=== PATIENT | female | born 1965 | race Caucasian/White ===

== ENCOUNTER → 2016-05-07 | Outpatient (CLI) | payer OTHER ==
[2015-08-19 12:08] VITALS: BP 142/91
[~2016-05-07] MED LIST: ACYC400T PO; ANAS1TAB3 PO; CHLO1CAP PO; CLON1TAB3 PO; ERGO400T2 PO; ERGO500012 PO; HYDR-2666 PO; HYDR-2678 PO; LEVO100T5 PO; METO-269 PO; METO25TA9 PO; OMEP40CA5 PO; ONDA4TAB7 PO; OXYC-323 PO; PROAIR HFA8.5 GM IH
--- NOTE | 2016-05-07 16:55 | RAD ---
Right elbow, 3 views, 05/07/2016: History: Elbow injury with swelling No acute fracture or dislocation is identified. There is no radiographic evidence of an elbow joint effusion. IMPRESSION: No acute right elbow abnormality is detected.
== END | disposition home or self-care (01) ==
LOC: RAD 13:04
PROVIDERS: ATTEND Family Medicine
DX: M25.421 Effusion, right elbow (principal)
CPT/HCPCS: 73080

== ENCOUNTER 2016-07-14 11:17 | Emergency (ER) | payer OTHER ==
[~2016-07-14 11:17] MED LIST changes: +AMLO1CAP8 PO; +TOPI-24 PO
[2016-07-14 11:24] VITALS: BP 164/74
[2016-07-14] MEDS ORDERED: ERYT1OIN6 EACHEYE (11:58)
--- NOTE | 2016-07-14 11:58 | PHYS DOC ---
Past Medical History Past Medical History: Anxiety, Arthritis, Cancer, Depression, Hypertension Additional Past Medical Histor: BREAST CA (L) Past Surgical History: Other Additional Past Surgical Histo: BREAST, CARPAL TUNNEL, L ANKLE Additional Information: 1 PACK A DAY Alcohol Use: Heavy Additional Information: 6 BEERS DAILY Drug Use: None Adult General Chief Complaint Chief Complaint: EYE PROBLEMS HPI HPI Patient is a 50 year old female with history of hypertension, depression, anxiety, who presents today with a stye on the right eye that began a week ago. Patient states she has been trying to use warm compresses to the area with no relief. Patient denies any vision loss. Review of Systems Review of Systems Constitutional: Denies fever or chills [] Eyes: Stye to the right eye HENT: Denies nasal congestion or sore throat [] Musculoskeletal: Denies back pain or joint pain [] Integument: Denies rash or skin lesions [] Neurologic: Denies headache, focal weakness or sensory changes [] Endocrine: Denies polyuria or polydipsia [] Allergies Allergies Allergies Coded Allergies Type Severity Reaction Last Updated Verified Penicillins Allergy Intermediate UNKNOWN REACTION A CHILD 09/07/14 Yes NSAIDS (Non-Steroidal Anti-Inflamma Allergy Mild NAUSEA AND VOMITING 06/03/15 Yes Physical Exam Physical Exam Constitutional: Well developed, well nourished, no acute distress, non-toxic appearance. [] HENT: Normocephalic, atraumatic, bilateral external ears normal, oropharynx moist, no oral exudates, nose normal. [] Eyes: PERRLA, EOMI, right conjunctiva appears normal. Right lateral upper eyelid with any internal stye, right medial lower eyelid with a small external stye. None of the sty are ready to be drained Skin: Warm, dry, no erythema, no rash. [] Back: No tenderness, no CVA tenderness. [] Extremities: No tenderness, no cyanosis, no clubbing, ROM intact, no edema. [] Neurologic: Alert and oriented X 3, normal motor function, normal sensory function, no focal deficits noted. [] Psychologic: Affect normal, judgement normal, mood normal. [] Current Patient Data Vital Signs Vital Signs Date Time Temp Pulse Resp B/P (MAP) Pulse Ox O2 Delivery O2 Flow Rate FiO2 07/14/16 11:24 98.0 72 164/74 (104) 98 Room Air 98.0 EKG EKG [] Radiology/Procedures Radiology/Procedures [] Course & Med Decision Making Course & Med Decision Making Pertinent Labs and Imaging studies reviewed. (See chart for details) Patient has internal and external stye to the right eye. Discharged with erythromycin eye ointment. Recommended warm compresses to the area. Provided operator bearer systems to follow-up in 7 days if symptoms continue. Dragon Disclaimer Dragon Disclaimer This electronic medical record was generated, in whole or in part, using a voice recognition dictation system. Departure Departure Impression: Primary Impression: Sty, internal Additional Impression: Sty, external Disposition: HOME, SELF-CARE Condition: STABLE Referrals: DAREN ARROYO MD (PCP) Fitz BELTRAN MD Follow-up with eye doctor provided in one week Patient Instructions: Sty Additional Instructions: You were seen for a stye of the right upper eyelid. Apply warm compresses to the area twice a day. Try and keep your hands very clean. Avoid touching the eye unnecessarily. If symptoms do not improve in 7 days, follow-up with the provided eye doctor. Scripts Erythromycin Base (ERYTHROMYCIN) 3.5 Gm Oint...g. 1 JOVANI EACHBeestarE BID, #3.5 GM Prov: EMILY GAYLE TICKET MANAGER 07/14/16 Problem Qualifiers Primary Impression: Sty, internal Laterality: right Eyelid: upper Qualified Codes: H00.021 - Hordeolum internum right upper eyelid Additional Impression: Sty, external Laterality: right Eyelid: lower Qualified Codes: H00.012 - Hordeolum externum right lower eyelid EMILY GAYLE TICKET MANAGER July 14, 2016 11:58
== END 2016-07-14 12:04 | disposition home or self-care (01) ==
LOC: ER 11:17
DX: H00.021 Hordeolum internum right upper eyelid (principal); H00.012 Hordeolum externum right lower eyelid; I10 Essential (primary) hypertension; F32.9 Major depressive disorder, single episode, unspecified; F41.9 Anxiety disorder, unspecified; M19.90 Unspecified osteoarthritis, unspecified site; F17.200 Nicotine dependence, unspecified, uncomplicated; F10.10 Alcohol abuse, uncomplicated; Z88.6 Allergy status to analgesic agent; Z88.0 Allergy status to penicillin
CPT/HCPCS: 99283

== ENCOUNTER → 2016-08-26 | Outpatient (CLI) | payer OTHER ==
[~2016-08-26] MED LIST changes: -ERGO500012 PO; +ERGO500027 PO; +ERYT1OIN6 EACHEYE; -HYDR-2666 PO; +HYDR-2758 PO; -TOPI-24 PO; +TOPI25TA7 PO
--- NOTE | 2016-08-26 12:12 | RAD ---
DATE: 08/26/2016 EXAM: DIGITAL DIAGNOSTIC BILATERAL HISTORY: 6 month follow-up left breast cancer, lumpectomy, radiation COMPARISON: 02/07/2016 This study was interpreted with the benefit of Computerized Aided Detection (CAD). FINDINGS: Breast Density: HETERO The breast parenchyma Is heterogeneously dense, which could reduce sensitivity of mammography. Breast parenchyma level C. Postsurgical changes identified in the left breast. Left breast appears small. Surgical clips are identified superiorly in the left breast. Microcalcifications identified in the right breast similar to prior exam. Mild architectural distortion identified in the right breast grossly similar to prior exam likely secondary to prior biopsy. IMPRESSION: Benign findings BI-RADS CATEGORY: 2 BENIGN FINDING RECOMMENDED FOLLOW-UP: 12M 12 MONTH FOLLOW-UP PQRS compliance statement: Patient information was entered into a reminder system with a target due date 08/26/2017 for the next mammogram. Mammography is a sensitive method for finding small breast cancers, but it does not detect them all and is not a substitute for careful clinical examination. A negative mammogram does not negate a clinically suspicious finding and should not result in delay in biopsying a clinically suspicious abnormality. "Our facility is accredited by the [employer] Mammography Program."
== END | disposition home or self-care (01) ==
LOC: KCIC MAMMO 11:02
PROVIDERS: ATTEND Family Medicine
DX: R92.8 Other abnormal and inconclusive findings on diagnostic imaging of breast (principal); Z85.3 Personal history of malignant neoplasm of breast
CPT/HCPCS: G0204; 77066

== ENCOUNTER 2017-05-17 18:58 | Emergency (ER) | payer OTHER ==
[2017-05-17 21:06] LABS: BILIRUBIN,URINE NEGATIVE (NEG); CLARITY,URINE CLEAR; COLOR,URINE YELLOW; GLUCOSE,URINE NEGATIVE (NEG); NITRITE,URINE POSITIVE (NEG); PH,URINE 6.5; PROTEIN,URINE NEGATIVE (NEG-TRACE); UROBILINOGEN,URINE 0.2 mg/dL (0.2 mg/dL)
[2017-05-17 21:12] LABS: ADD MAN DIFF? NO
[2017-05-17 21:16] LABS: BACTERIA,URINE MANY /HPF (0-FEW); SQUAMOUS EPITHELIAL CELL,UR FEW /LPF
[2017-05-17 21:20] LABS: BASO % 1 % (0-3); EOS # 0.1 x10^3/uL (0.0-0.7); EOS % 1 % (0-3); HEMATOCRIT 42.2 % (36.0-47.0); HEMOGLOBIN 14.6 g/dL (12.0-15.5); LYMPH # 1.5 x10^3/uL (1.0-4.8); LYMPH % 28 % (24-48); MEAN CORPUSCULAR HEMOGLOBIN 35 pg (25-35); MEAN CORPUSCULAR HGB CONC 35 g/dL (31-37); MEAN CORPUSCULAR VOLUME 102 fL (79-100); MONO # 0.5 x10^3/uL (0.0-1.1); MONO % 9 % (0-9); NEUT # 3.3 x10^3uL (1.8-7.7); NEUT % 61 % (31-73); PLATELET COUNT 212 x10^3/uL (140-400); RED BLOOD COUNT 4.13 x10^6/uL (3.50-5.40); RED CELL DISTRIBUTION WIDTH 12.9 % (11.5-14.5); WHITE BLOOD COUNT 5.4 x10^3/uL (4.0-11.0)
[2017-05-17 21:24] LABS: ANION GAP 9 (6-14); BLOOD UREA NITROGEN 8 mg/dL (7-20); BUN/CREATININE RATIO 9 (6-20); CALCIUM 9.9 mg/dL (8.5-10.1); CARBON DIOXIDE 26 mmol/L (21-32); CHLORIDE 94 mmol/L (98-107); CREATININE 0.9 mg/dL (0.6-1.0); GLUCOSE 101 mg/dL (70-99); POTASSIUM 3.6 mmol/L (3.5-5.1); SODIUM 129 mmol/L (136-145)
[2017-05-17 21:30] LABS: ALBUMIN 3.7 g/dL (3.4-5.0); ALBUMIN/GLOBULIN RATIO 0.9 (1.0-1.7); ALK PHOS 63 U/L (46-116); ALT (SGPT) 32 U/L (14-59); AST (SGOT) 38 U/L (15-37); TOTAL BILIRUBIN 0.8 mg/dL (0.2-1.0)
[2017-05-17 21:36] LABS: NT-PRO BNP 189 pg/mL (0-124)
== END 2017-05-17 23:24 | disposition home or self-care (01) ==
LOC: ER 18:58
DX: R60.0 Localized edema (principal); L03.90 Cellulitis, unspecified; I10 Essential (primary) hypertension; J44.9 Chronic obstructive pulmonary disease, unspecified; I73.9 Peripheral vascular disease, unspecified; M19.90 Unspecified osteoarthritis, unspecified site; Z88.0 Allergy status to penicillin; Z88.6 Allergy status to analgesic agent
CPT/HCPCS: 36415; 80053; 81001; 83880; 85025; 87086; 93970; 99285-25

== ENCOUNTER → 2017-08-06 | Outpatient (CLI) | payer OTHER | END | disposition home or self-care (01) | LOC: KCIC US 10:48 | DX: I65.23 Occlusion and stenosis of bilateral carotid arteries (principal); I10 Essential (primary) hypertension; F17.200 Nicotine dependence, unspecified, uncomplicated | CPT/HCPCS: 93880 ==

== ENCOUNTER → 2017-09-01 | Outpatient (CLI) | payer OTHER | END | disposition home or self-care (01) | LOC: KCIC MAMMO 11:05 | DX: R92.8 Other abnormal and inconclusive findings on diagnostic imaging of breast (principal); I10 Essential (primary) hypertension; E78.5 Hyperlipidemia, unspecified; E78.00 Pure hypercholesterolemia, unspecified; Z85.3 Personal history of malignant neoplasm of breast | CPT/HCPCS: 77066 ==

== ENCOUNTER → 2017-09-03 | Outpatient (CLI) | payer OTHER ==
[~2017-09-03] MED LIST changes: -ACYC400T PO; -AMLO1CAP8 PO; -ANAS1TAB3 PO; -CHLO1CAP PO; -CLON1TAB3 PO; +CONTRAST GIVEN. MC; -ERGO400T2 PO; -ERGO500027 PO; -ERYT1OIN6 EACHEYE; -HYDR-2678 PO; -HYDR-2758 PO; -LEVO100T5 PO; -METO-269 PO; -METO25TA9 PO; -OMEP40CA5 PO; -ONDA4TAB7 PO; -OXYC-323 PO; -PROAIR HFA8.5 GM IH; -TOPI25TA7 PO
[2017-09-03] MEDS: IOHEXOL 240 MG/ML 50ML VIAL. PO (10:15)
[2017-09-03] MEDS: IOHEXOL 300 MG/ML 100ML VIAL. IV (11:26)
== END | disposition home or self-care (01) ==
LOC: KCIC CT 09:59
DX: K57.30 Diverticulosis of large intestine without perforation or abscess without bleeding (principal); I70.0 Atherosclerosis of aorta; K80.80 Other cholelithiasis without obstruction; R91.1 Solitary pulmonary nodule; Z85.3 Personal history of malignant neoplasm of breast
CPT/HCPCS: 71260; 74177; Q9966; Q9967

== ENCOUNTER → 2017-09-17 | Outpatient (CLI) | payer OTHER | END | disposition home or self-care (01) | LOC: NM 12:32 | DX: R07.81 Pleurodynia (principal); I10 Essential (primary) hypertension; E78.5 Hyperlipidemia, unspecified; E78.00 Pure hypercholesterolemia, unspecified; E03.9 Hypothyroidism, unspecified; K21.9 Gastro-esophageal reflux disease without esophagitis; Z85.3 Personal history of malignant neoplasm of breast | CPT/HCPCS: 78306; 96374; A9503 ==

== ENCOUNTER → 2017-11-17 | Outpatient (CLI) | payer OTHER ==
[2017-05-19 10:55] VITALS: BP 143/107
[~2017-11-17] MED LIST changes: +ACYC400T PO; +AMLO1CAP8 PO; +ANAS1TAB47 PO; +CEPH-264 PO; +CHLO1CAP PO; +CLON1TAB4 PO; -CONTRAST GIVEN. MC; +ERGO400T2 PO; +ERGO500027 PO; +ERYT1OIN6 EACHEYE; +HYDR-2678 PO; +HYDR-2758 PO; +IOHEXOL 300 MG/ML 100ML VIAL. IV ONE; +LEVO100T5 PO; +METO-239 PO; +METO-269 PO; +OMEP40CA5 PO; +ONDA4TAB7 PO; +OXYC-323 PO; +PROAIR HFA8.5 GM IH; +TOPI25TA7 PO
--- NOTE | 2017-11-17 14:21 | KCIC ---
CT CHEST W/CONTRAST Indication: Lung nodule. History of breast cancer. Exposure: One or more of the following individualized dose reduction techniques were utilized for this examination: 1. Automated exposure control 2. Adjustment of the mA and/or kV according to patient size 3. Use of iterative reconstruction technique. Comparison: September 03, 2017 Contrast: Intravenous contrast given. Thoracic aorta: Mildly calcified and ectatic. Mild pulsatility artifact of the ascending aorta. No evidence of aneurysm. Great vessel origins:Patent Pulmonary arteries:Main central arteries appear patent. Thyroid gland:Visualized aspect is unremarkable. Lymph nodes:No significant enlargement Heart: Coronary artery calcifications Esophagus: Unremarkable Pleural spaces: No significant effusion Lungs: Mild emphysematous changes.Previously seen subpleural nodule in the right lower lobe has decreased in size, now measuring about 2-3 mm, as compared with 5 mm previously. Trachea and central airways: Patent Spine: Mildly degenerative. Bones: No destructive process. Upper abdomen: Slices through the upper abdomen are limited due to the technique. Diffuse thickening of the visualized gastric wall, could be due to incomplete distention. Multiple low-density lesions of the left kidney are partially visualized most likely represent cysts. Tiny gallstone is identified. Impression: 1. Previously seen right lower lobe subpleural nodule has decreased in size. No new abnormalities in the chest. 2. Cholelithiasis. 3. Gastric wall thickening, may just be due to incomplete distention, depending on clinical correlation. Electronically signed by: Yuri Davis MD (11/17/2017 2:18 PM) [facility]
== END | disposition home or self-care (01) ==
LOC: KCIC CT 09:37
PROVIDERS: ATTEND Nurse Practitioner Adult Health
DX: I25.10 Atherosclerotic heart disease of native coronary artery without angina pectoris (principal); R91.1 Solitary pulmonary nodule; F17.200 Nicotine dependence, unspecified, uncomplicated; I10 Essential (primary) hypertension; J44.9 Chronic obstructive pulmonary disease, unspecified; Z85.3 Personal history of malignant neoplasm of breast
CPT/HCPCS: 71260; Q9967

== ENCOUNTER → 2018-09-23 | Outpatient (CLI) | payer OTHER ==
[2017-05-19 10:55] VITALS: BP 143/107
[~2018-09-23] MED LIST changes: +ALBU2.5V8 IH; +CLON1TAB11 PO; -CLON1TAB4 PO; -HYDR-2758 PO; +HYDR-2761 PO; +IOHEXOL 240 MG/ML 50ML VIAL. PO ONE; -OXYC-323 PO; +OXYC1TAB15 PO; -PROAIR HFA8.5 GM IH
--- NOTE | 2018-09-23 11:13 | RAD ---
PQRS Compliance statement: One or more of the following individualized dose reduction techniques were utilized for this examination: 1. Automated exposure control. 2. Adjustment of the mA and/or kV according to patient size. 3. Use of iterative reconstruction technique. Indication:Left breast cancer. TECHNIQUE: CT chest, abdomen and pelvis with IV contrast with multiplanar reformats. COMPARISON:CT chest from 11/17/2017. An CT abdomen pelvis from 05/18/2017. FINDINGS: Heart is normal in size. No pericardial or pleural effusion. Coronary artery calcifications noted. Clear neck base. No enlarged axillary, mediastinal or hilar lymph nodes. Calcified left hilar lymph node. Mild atherosclerotic plaque in the thoracic aorta. Central airways are patent. Mild centrilobular emphysema. Lungs are clear. No suspicious bony lesion. Liver, spleen, pancreas, adrenals within normal limits. Gallstone noted. Bilateral simple appearing renal cysts. No nephrolithiasis or hydronephrosis or suspicious renal lesion. No enlarged retroperitoneal or pelvic adenopathy. Moderate atherosclerotic plaque in the infrarenal aorta and bilateral iliac arteries. No free pelvic fluid or ascites. No bowel obstruction. Normal appendix. Anteverted uterus. Urinary bladder is within normal limits. No suspicious bony lesion. Stable gastric wall thickening is seen diffusely. IMPRESSION: 1. No evidence of metastatic disease. 2. Cholelithiasis without imaging evidence of acute cholecystitis. 3. Stable diffuse gastric wall thickening. Clinically correlate for chronic gastritis. Electronically signed by: Pratik Interiano DO (09/23/2018 11:10 AM) [facility]
--- NOTE | 2018-09-23 16:50 | RAD ---
Examination: Whole body bone scan HISTORY: History of breast cancer COMPARISON: 09/25/2017 TECHNIQUE: Whole body bone scan was obtained after injection of 25.1 mCi of technetium 99m MDP. Anterior and posterior whole body bone scan images were performed FINDINGS: Faint focal radiotracer uptake identified in the left anterolateral rib likely old rib fracture. Mild increased radiotracer uptake identified in the bilateral ankles likely secondary to degeneration. No focal tracer uptake identified to suggest osteoblastic skeletal metastasis. IMPRESSION: No evidence of osteoblastic skeletal metastasis. Electronically signed by: Vamshi Joseph MD (09/23/2018 4:47 PM) [facility]
== END | disposition home or self-care (01) ==
LOC: NM 09:30
PROVIDERS: ATTEND Internal Medicine Hematology & Oncology
DX: C50.912 Malignant neoplasm of unspecified site of left female breast (principal); J43.2 Centrilobular emphysema; I25.10 Atherosclerotic heart disease of native coronary artery without angina pectoris; I70.0 Atherosclerosis of aorta; I70.8 Atherosclerosis of other arteries; K80.20 Calculus of gallbladder without cholecystitis without obstruction; Z17.0 Estrogen receptor positive status [ER+]; Z88.0 Allergy status to penicillin; Z88.8 Allergy status to other drugs, medicaments and biological substances
CPT/HCPCS: 71260; 74177; 78306; A9503; Q9966; Q9967

== ENCOUNTER → 2018-09-30 | Outpatient (CLI) | payer MEDICAID, OTHER ==
[2017-05-19 10:55] VITALS: BP 143/107
[~2018-09-30] MED LIST changes: -IOHEXOL 240 MG/ML 50ML VIAL. PO ONE; -IOHEXOL 300 MG/ML 100ML VIAL. IV ONE
--- NOTE | 2018-09-30 16:40 | KCIC ---
Bilateral diagnostic digital mammograms: Reason for examination: History of left breast cancer with lumpectomy and radiation therapy in 2015. History of right breast additional biopsy for ALH. Comparison is made to previous studies dated back to 02/07/2016. Interpretation was made with the benefit of CAD. The skin and nipples show no abnormalities. No abnormal axillary lymph nodes are seen. The breast parenchyma is heterogeneously dense. (Breast density: Category C.) There are postop changes in the left breast which is now smaller than previous examination from previous lumpectomy. There is some postop architectural distortion in the upper outer quadrant of the right breast which is probably related to previous excisional biopsy. There appear to be some clustered calcifications developing in the upper outer quadrant of the right breast at the 11:00 C position. Further evaluation with stereotactic biopsy should be considered. Impression: Architectural distortion in the upper outer quadrant of the right breast which is probably related to previous surgery. Status post follow. Clustered calcifications seen at the 11:00 C position. Recommend stereotactic biopsy. Your patient's mammogram demonstrates that she has dense breast tissue (breast density category C or D), which could hide abnormalities, and if she has other risk factors for breast cancer that have been identified, she might benefit from supplemental screening tests that may be suggested by you as her ordering physician. Dense breast tissue, in and of itself, is a relatively common condition. Therefore, this information is not provided to cause undue concern, but rather to raise your awareness and to promote discussion with your patient regarding the presence of other risk factors, in addition to dense breast tissue. Your patient's mammography results will be sent to her. BI-RADS Category 4: Suspicious. Right breast ultrasound: Right whole breast ultrasound was performed with special attention to the upper outer quadrant and the retroareolar and axillary regions of the right breast was performed. There appears to be some architectural distortion probably related to the surgical scar at the 10:00 position 6 cm from the nipple. In the 10:00 position 4 cm from the nipple however, there is heterogeneous decreased echogenicity with some posterior acoustic shadowing present with ill-defined margins. This measures at least 2 cm in greatest dimension. There is also some ill-defined hypoechoic tissue at the 12:00 position showing some posterior acoustic shadowing. Further evaluation with ultrasound-guided biopsy is recommended. No suspicious appearing lymph nodes are seen in the right axilla. IMPRESSION: Parenchymal scarring at the 10:00 position 6 cm from the nipple. There is decreased echogenicity with some posterior shadowing at the 10:00 position 4 cm from the nipple and at the 12 position. Recommend further evaluation with ultrasound guided biopsies. BI-RADS Category 4: Suspicious. These findings have been discussed with the patient and the patient's physician, Dr. Olivo will be notified about these findings in the morning when the office reopens. "Our facility is accredited by the [employer] Mammography Program." This patient's information has been entered into a reminder system for the patient to be notified with the results of her examination and a target date for the next mammogram. Electronically signed by: Yi Khan MD (09/30/2018 4:37 PM) [facility]
== END | disposition home or self-care (01) ==
LOC: KCIC MAMMO 10:07
PROVIDERS: ATTEND Internal Medicine Hematology & Oncology
DX: N64.89 Other specified disorders of breast (principal); Z17.0 Estrogen receptor positive status [ER+]; Z90.12 Acquired absence of left breast and nipple; Z85.3 Personal history of malignant neoplasm of breast
CPT/HCPCS: 76641; 77066

== ENCOUNTER → 2018-10-14 | Outpatient (CLI) | payer MEDICAID ==
[2017-05-19 10:55] VITALS: BP 143/107
[~2018-10-14] MED LIST changes: -AMLO1CAP8 PO; +AMLO1CAP9 PO; -CLON1TAB11 PO; +CLONAZEPAM1 MG PO
--- NOTE | 2018-10-14 18:22 | RAD ---
Examination: DIGITAL DIAGNOSTIC RT, STEREOTACTIC BREAST BIOPSY RT History: Abnormal right breast calcifications Comparison/Correlation: Digital diagnostic bilateral mammographic exam 08/31/2018 Findings: Risks and benefits of stereotactic guided right breast biopsy were discussed with the patient and informed consent was obtained. Preliminary stereotactic pair images were obtained. Targeting of calcifications images was performed. Lateral approach was utilized. Cleansing with ChloraPrep was performed. Approximately 8 cc 1 percent lidocaine was administered. Scalpel incision was made. 19-gauge needle was placed into the right breast. It was subsequently fired. 12 samples were acquired and specimen radiograph demonstrated numerous calcifications within the acquired samples. Clip marker was then deployed. Stereotactic pair images were acquired demonstrating deployment of the clip marker within the biopsy cavity. Patient tolerated the procedure well without immediate complications. Post biopsy lateral medial and CC images were acquired. Biopsy clip marker and biopsy cavity aren't the upper outer aspect. This is superomedial in location to the calcifications of interest reported on diagnostic mammographic exam of 09/30/2018. It is in the region of distortion related to previous biopsy. Impression: Right upper outer breast stereotactic biopsy was performed. Calcifications are present within the samples acquired. These do not correspond with the calcifications of interest reported on previous diagnostic mammographic exam. Repeat sampling attempt may be needed pending biopsy results. Electronically signed by: Ian Montemayor MD (10/14/2018 6:19 PM) [facility]
--- NOTE | 2018-10-18 08:07 | PATHOLOGY ---
[facility] Accession Number: [id number] . 01 Material submitted: . breast - RIGHT BREAST BIOPSY, RIGHT UPPER OUTER QUADRANT. Modifiers: upper, right, outer . 01 Clinical history: . Right breast calcifications. . 02 Diagnosis: Breast tissue, right breast upper outer quadrant needle biopsies: - Stromal fibrosis and focal sclerosing adenosis. - Numerous microcalcifications identified. LB/10/15/2018 . 02 Comment: Sections of the right breast upper outer quadrant needle biopsies reveal breast tissue showing prominent areas of stromal fibrosis. There are foci of sclerosing adenosis. There are focally numerous microcalcifications associated with atrophic lobular units and with foci of sclerosing adenosis. There is no atypia or evidence of malignancy. (JPM/db; 10/15/2018) . 02 Electronically signed: . Oscar Maldonado MD, Pathologist NPI- [id number] . 01 Gross description: . Received in formalin in an orange cassette labeled "Ayaka Batres, right breast tissue" is a 3.0 x 2.3 x 0.3 cm aggregate of sosa-yellow lobulated soft tissue cores. The specimen is submitted entirely in cassettes A1-A3. The specimen is removed from the patient at 1410 and placed in formalin at 1426 on October 14, 2018. The specimen is removed from formalin at 2150 on October 14, 2018. ([facility]; 10/14/2018) SYC/SYC . 02 Pathologist provided ICD-10: N60.31, N60.21 . 02 CPT . 865112 Specimen Comment: A courtesy copy of this report has been sent to Specimen Comment: [phone], , . Specimen Comment: Report sent to ,DR MENDIOLA / DR MCMILLAN Performed at: [address] [facility] [address], [place], [place] [id number] MD Jose Rivera MD Phone: [phone] Performed at: 02 [facility] [address] [place], [place] [id number] MD Oscar Maldonado MD Phone: [phone]
== END ==
LOC: MAMMO 12:46
PROVIDERS: ATTEND Internal Medicine Hematology & Oncology
DX: N60.31 Fibrosclerosis of right breast (principal)
CPT/HCPCS: 19081; 77022; 77065; 88305; C1713; 19083; 19085

== ENCOUNTER → 2018-12-21 | Outpatient (CLI) | payer MEDICAID ==
[2017-05-19 10:55] VITALS: BP 143/107
[~2018-12-21] MED LIST changes: +OMEP40CA45 PO; -OMEP40CA5 PO
--- NOTE | 2018-12-21 12:17 | KCIC ---
CT HEAD WO CONTRAST History: Headache, history of breast cancer Comparison: None. Technique: Noncontrast CT imaging was performed of the head. Exposure: One or more of the following individualized dose reduction techniques were utilized for this examination: 1. Automated exposure control 2. Adjustment of the mA and/or kV according to patient size 3. Use of iterative reconstruction technique. Findings: No acute extra-axial or parenchymal hemorrhage is identified. There is no significant intra-axial mass effect, midline shift, or extra-axial fluid collection. The lai-white differentiation of the major vascular territories is preserved. Ventricular size is proportionate to sulcal spaces. There is mild generalized prominence of the supratentorial subarachnoid spaces. Mastoid air cells are aerated. There is severe right maxillary sinus mucosal thickening, limited aeration. No acute calvarial abnormality is identified. Impression: 1. No acute intracranial abnormality is identified. 2. There is severe right maxillary sinus mucosal thickening, limited aeration. Electronically signed by: Jos Blair MD (12/21/2018 12:14 PM) [facility]
--- NOTE | 2018-12-21 18:00 | KCIC ---
CHEST PA LATERAL History: COPD, smoker of over 30 years Comparison: January 21, 2016 Findings: 2 views of the chest are submitted. There are again some clips of the mid left hemithorax. No new lobar consolidation, pleural fluid, pneumothorax is identified. Cardiac silhouette is stable, within normal limits. There may be emphysema. Impression: 1. No new lobar infiltrate is identified. Low-dose CT is recommended if desire to screen for pulmonary nodules. Electronically signed by: Jos Blair MD (12/21/2018 5:57 PM) [facility]
== END | disposition home or self-care (01) ==
LOC: KCIC CT 11:22
PROVIDERS: ATTEND Family Medicine
DX: G43.909 Migraine, unspecified, not intractable, without status migrainosus (principal); J44.9 Chronic obstructive pulmonary disease, unspecified; F17.200 Nicotine dependence, unspecified, uncomplicated
CPT/HCPCS: 70450; 71046

== ENCOUNTER 2018-12-29 12:13 | Emergency (ER) | payer MEDICAID ==
[~2018-12-29] VITALS: Ht 165.1 cm; Wt 62.6 kg
[2018-12-29] MEDS ORDERED: LABETALOL 20 MG/4 ML DISP.SYRIN. IVP STA (12:48)
--- NOTE | 2018-12-29 13:07 | PHYS DOC ---
Past Medical History Past Medical History: Anxiety, Arthritis, Cancer, Depression, Hypertension, Hypothyroid, Liver Disease Additional Past Medical Histor: BREAST CA (L) HEP B, LIVER FAILURE Past Surgical History: Other Additional Past Surgical Histo: L mastectomy, CARPAL TUNNEL, L ANKLE Alcohol Use: Heavy Drug Use: None Adult General Chief Complaint Chief Complaint: MEDICATION REFILL HPI HPI Patient is a 53 year old female that presents to the ER stating that she try to get her blood pressure medicine filled this past week and the pharmacy would not fill it as they had per the patient a a stating that she just gotten filled recently. She states that she had not gotten it filled and was mistake on the pharmacy. She states that she is out of her metoprolol that she normally takes has not taken since Thursday. He states that she started having a headache yesterday, and had a little bit of blurry vision last night. Rates her headache 7 out of 10 in severity and sharp. Review of Systems Review of Systems Constitutional: Denies fever or chills [] Eyes: Denies change in visual acuity at this time, redness, or eye pain [] HENT: Denies nasal congestion or sore throat [] Respiratory: Denies cough or shortness of breath [] Cardiovascular: No additional information not addressed in HPI [] GI: Denies abdominal pain, nausea, vomiting, bloody stools or diarrhea [] : Denies dysuria or hematuria [] Musculoskeletal: Denies back pain or joint pain [] Integument: Denies rash or skin lesions [] Neurologic: Reports headache,denies focal weakness or sensory changes [] Endocrine: Denies polyuria or polydipsia [] Complete systems were reviewed and found to be within normal limits, except as documented in this note. Current Medications Current Medications Current Medications Medications (Trade) Dose Ordered Sig/Marcellus Start Time Stop Time Status Last Admin Dose Admin Labetalol HCl (Normodyne Iv Push) 10 mg 1X STAT 12/29/18 12:48 12/29/18 12:52 DC 12/29/18 13:11 10 MG Allergies Allergies Allergies Coded Allergies Type Severity Reaction Last Updated Verified Penicillins Allergy Intermediate UNKNOWN REACTION A CHILD 09/07/14 Yes cephalexin Allergy Intermediate Nausea and Vomiting 05/18/17 Yes NSAIDS (Non-Steroidal Anti-Inflamma Allergy Mild NAUSEA AND VOMITING 06/03/15 Yes Physical Exam Physical Exam Constitutional: Well developed, well nourished, no acute distress, non-toxic appearance. [] HENT: Normocephalic, atraumatic, bilateral external ears normal, oropharynx mo ist, no oral exudates, nose normal. [] Eyes: PERRLA, EOMI, conjunctiva normal, no discharge. [] Neck: Normal range of motion, no tenderness, supple, no stridor. [] Cardiovascular:Heart rate regular rhythm, no murmur [] Lungs & Thorax: Bilateral breath sounds clear to auscultation [] Abdomen: Bowel sounds normal, soft, no tenderness, no masses, no pulsatile masses. [] Skin: Warm, dry, no erythema, no rash. [] Back: No tenderness, no CVA tenderness. [] Extremities: No tenderness, no cyanosis, no clubbing, ROM intact, no edema. [] Neurologic: Alert and oriented X 3, normal motor function, normal sensory function, no focal deficits noted. [] Psychologic: Affect normal, judgement normal, mood normal. [] Current Patient Data Vital Signs Vital Signs Date Time Temp Pulse Resp B/P (MAP) Pulse Ox O2 Delivery O2 Flow Rate FiO2 12/29/18 13:11 114 205/95 12/29/18 12:46 98.3 18 98 Room Air 98.3 Lab Values Laboratory Tests Test 12/29/18 13:00 White Blood Count 4.1 x10^3/uL (4.0-11.0) Red Blood Count 3.56 x10^6/uL (3.50-5.40) Hemoglobin 13.0 g/dL (12.0-15.5) Hematocrit 37.8 % (36.0-47.0) Mean Corpuscular Volume 106 fL (79-100) H Mean Corpuscular Hemoglobin 36 pg (25-35) H Mean Corpuscular Hemoglobin Concent 34 g/dL (31-37) Red Cell Distribution Width 13.7 % (11.5-14.5) Platelet Count 200 x10^3/uL (140-400) Neutrophils (%) (Auto) 62 % (31-73) Lymphocytes (%) (Auto) 27 % (24-48) Monocytes (%) (Auto) 9 % (0-9) Eosinophils (%) (Auto) 1 % (0-3) Basophils (%) (Auto) 1 % (0-3) Neutrophils # (Auto) 2.6 x10^3/uL (1.8-7.7) Lymphocytes # (Auto) 1.1 x10^3/uL (1.0-4.8) Monocytes # (Auto) 0.4 x10^3/uL (0.0-1.1) Eosinophils # (Auto) 0.1 x10^3/uL (0.0-0.7) Basophils # (Auto) 0.0 x10^3/uL (0.0-0.2) Sodium Level 135 mmol/L (136-145) L Potassium Level 4.5 mmol/L (3.5-5.1) Chloride Level 97 mmol/L (98-107) L Carbon Dioxide Level 22 mmol/L (21-32) Anion Gap 16 (6-14) H Blood Urea Nitrogen 3 mg/dL (7-20) L Creatinine 0.8 mg/dL (0.6-1.0) Estimated GFR (Cockcroft-Gault) 75.0 BUN/Creatinine Ratio 4 (6-20) L Glucose Level 71 mg/dL (70-99) Calcium Level 9.3 mg/dL (8.5-10.1) Total Bilirubin 0.7 mg/dL (0.2-1.0) Aspartate Amino Transferase (AST) 92 U/L (15-37) H Alanine Aminotransferase (ALT) 44 U/L (14-59) Alkaline Phosphatase 66 U/L (46-116) Troponin I Quantitative < 0.017 ng/mL (0.000-0.055) Total Protein 7.5 g/dL (6.4-8.2) Albumin 3.9 g/dL (3.4-5.0) Albumin/Globulin Ratio 1.1 (1.0-1.7) Laboratory Tests 12/29/18 13:00 Laboratory Tests 12/29/18 13:00 EKG EKG EKG interpreted by Dr. Ellis Sinus rate of 96, No acute abnormalities. Radiology/Procedures Radiology/Procedures [][facility] [address] [place] [address] IMAGING REPORT Signed PATIENT: MOHINI DENNEY ACCOUNT: [id number] : 1965 LOCATION: ER AGE: 53 SEX: F EXAM STATUS: REG ER ORD. PHYSICIAN: LATISHA HUNTER APRN REASON: headache, HTN PROCEDURE: CT HEAD WO CONTRAST EXAM: Head CT without contrast. HISTORY: Headache. Hypertension. TECHNIQUE: Computed tomographic images of the head were obtained without contrast.. *One or more of the following individualized dose reduction techniques were utilized for this examination: 1. Automated exposure control. 2. Adjustment of the mA and/or kV according to patient size. 3. Use of iterative reconstruction technique. COMPARISON: 12/21/2018. FINDINGS: There is no acute or subacute extra-axial or intraparenchymal hemorrhage. There is no mass effect or midline shift. There is no hydrocephalus. There are areas of decreased attenuation within the cerebral white matter, nonspecific and likely related to chronic small vessel disease. There is moderate right maxillary and bilateral ethmoid sinus because of thickening. The mastoid air cells are clear. The orbits are unremarkable. No calvarial lesion is seen. IMPRESSION: No acute intracranial findings. Electronically signed by: Chey Kennedy MD (12/29/2018 1:34 PM) [id number] DICTATED and SIGNED BY: CHEY KENNEDY MD DATE: 12/29/18 1334 Course & Med Decision Making Course & Med Decision Making Pertinent Labs and Imaging studies reviewed. (See chart for details) Will get EKG, CT of Head, Labs, and give Labetalol. I will send home with 25 mg BID of Metoprolol as this is what she is normally on. CT head is negative. Patient blood pressure has decreased to 160's systolic. Patient headache has disappeared. Labs are unremarkable. Will d/c home with BP meds. Dragon Disclaimer Dragon Disclaimer This electronic medical record was generated, in whole or in part, using a voice recognition dictation system. Departure Departure Impression: Primary Impression: Hypertension Disposition: HOME, SELF-CARE Condition: STABLE Referrals: LATISHA MCMILLAN MD (PCP) Patient Instructions: Hypertension Additional Instructions: Thank you for visiting [facility]. We appreciate you trusting us with your care. If any additional problems come up don't hesitate to return to visit us. Please follow up with your primary care provider so they can plan tawnya tional care if needed and know about the problem that you had. If symptoms worsen come back to the Emergency Department. Any concerning symptoms that start such as chest pain, shortness of air, weakness or numbness on one side of the body, running high fevers or any other concerning symptoms return to the ER. Please fill your medications at any pharmacy and follow the prescription instructions. Please start taking your blood pressure medicine. Scripts Metoprolol Tartrate (METOPROLOL TARTRATE) 25 Mg Tablet 25 MG PO BID for FOR HYPERTENSION for 30 Days, #60 TAB 0 Refills Prov: LATISHA HUNTER APRN 12/29/18 Problem Qualifiers Primary Impression: Hypertension Hypertension type: unspecified Qualified Codes: I10 - Essential (primary) hypertension LATISHA HUNTER APRN Dec 29, 2018 13:07
[2018-12-29 13:17] LABS: BASO % 1 % (0-3); EOS # 0.1 x10^3/uL (0.0-0.7); EOS % 1 % (0-3); HEMATOCRIT 37.8 % (36.0-47.0); LYMPH # 1.1 x10^3/uL (1.0-4.8); LYMPH % 27 % (24-48); MEAN CORPUSCULAR HEMOGLOBIN 36 pg (25-35); MEAN CORPUSCULAR HGB CONC 34 g/dL (31-37); MEAN CORPUSCULAR VOLUME 106 fL (79-100); MONO # 0.4 x10^3/uL (0.0-1.1); MONO % 9 % (0-9); NEUT # 2.6 x10^3/uL (1.8-7.7); NEUT % 62 % (31-73); PLATELET COUNT 200 x10^3/uL (140-400); RED BLOOD COUNT 3.56 x10^6/uL (3.50-5.40); RED CELL DISTRIBUTION WIDTH 13.7 % (11.5-14.5); WHITE BLOOD COUNT 4.1 x10^3/uL (4.0-11.0)
[2018-12-29 13:20] LABS: CALCIUM 9.3 mg/dL (8.5-10.1); CREATININE 0.8 mg/dL (0.6-1.0); POTASSIUM 4.5 mmol/L (3.5-5.1)
[2018-12-29 13:26] LABS: ALBUMIN 3.9 g/dL (3.4-5.0); ALBUMIN/GLOBULIN RATIO 1.1 (1.0-1.7); TOTAL BILIRUBIN 0.7 mg/dL (0.2-1.0); TOTAL PROTEIN 7.5 g/dL (6.4-8.2)
--- NOTE | 2018-12-29 13:30 | EKG ---
[facility] [address] [place] [address] Test Date: 2018-12-29 Test Time: 13:01:32 Pat Name: MOHINI DENNEY Department: Room: Gender: F Entry Analyst: : 1965 Requested By: LATISHA HUNTER Order Number: [id number] Reading MD: Yusuf Fitzgerald MD Measurements Intervals Clifford Rate: 96 P: 90 MO: 138 QRS: 49 QRSD: 78 T: 27 QT: 326 QTc: 413 Interpretive Statements SINUS RHYTHM Electronically Signed On 01-12-2019 8:49:33 CHEMICAL PROCESS PROJECT ENGINEER by Yusuf Fitzgerald MD
--- NOTE | 2018-12-29 13:37 | RAD ---
EXAM: Head CT without contrast. HISTORY: Headache. Hypertension. TECHNIQUE: Computed tomographic images of the head were obtained without contrast.. *One or more of the following individualized dose reduction techniques were utilized for this examination: 1. Automated exposure control. 2. Adjustment of the mA and/or kV according to patient size. 3. Use of iterative reconstruction technique. COMPARISON: 12/21/2018. FINDINGS: There is no acute or subacute extra-axial or intraparenchymal hemorrhage. There is no mass effect or midline shift. There is no hydrocephalus. There are areas of decreased attenuation within the cerebral white matter, nonspecific and likely related to chronic small vessel disease. There is moderate right maxillary and bilateral ethmoid sinus because of thickening. The mastoid air cells are clear. The orbits are unremarkable. No calvarial lesion is seen. IMPRESSION: No acute intracranial findings. Electronically signed by: Chey Ballard MD (12/29/2018 1:34 PM) [id number]
[2018-12-29] MEDS ORDERED: METO25TA4 PO (13:46)
[2018-12-29 14:00] VITALS: BP 164/83
== END 2018-12-29 14:08 | disposition home or self-care (01) ==
LOC: ER 12:13
DX: I10 Essential (primary) hypertension (principal); R51 Headache; H53.8 Other visual disturbances; Z88.0 Allergy status to penicillin; Z88.1 Allergy status to other antibiotic agents; Z88.6 Allergy status to analgesic agent
CPT/HCPCS: 36415; 70450; 80053; 84484; 85025; 93005; 96374; 99285; J3490